=== PATIENT | male | born 1960 | race Two or more races ===

== ENCOUNTER 2022-06-05 08:00 | Outpatient (RCR) | payer MEDICARE, MEDICAID, SELFPAY ==
--- NOTE | ~2022-06-05 | XR_ITS ---
EXAMINATION: XR FOOT, LEFT CLINICAL INFORMATION: Nonhealing wound left foot COMPARISON: None TECHNIQUE: AP, lateral, and oblique views of the left foot. FINDINGS: The bones are osteopenic. No fracture or dislocation is seen. There is question of erosive change of the medial distal tuft of the great toe. Joint spaces are normal. There may be soft tissue swelling over the heel. There is a small plantar calcaneal spur. There is soft tissue arterial calcification. XR/XR foot LT min 3V IMPRESSION: Question of erosive change of the distal tuft of the great toe. Clinically correlate for osteomyelitis. Soft tissue swelling over the heel.
== END 2022-12-15 13:55 | disposition home or self-care (01) ==
LOC: HO.WCC 08:00
PROVIDERS: PCP Family Medicine; Visit Provider Physician Assistant
DX: E11.621 Type 2 diabetes mellitus with foot ulcer (principal); L97.422 Non-pressure chronic ulcer of left heel and midfoot with fat layer exposed; L97.412 Non-pressure chronic ulcer of right heel and midfoot with fat layer exposed; E11.51 Type 2 diabetes mellitus with diabetic peripheral angiopathy without gangrene; L84 Corns and callosities; I10 Essential (primary) hypertension; F17.210 Nicotine dependence, cigarettes, uncomplicated
CPT/HCPCS: 11042; 11043; 73630; 97597; 99212; 99213

== ENCOUNTER 2022-08-12 08:52 | Outpatient (REF) | payer MEDICARE, MEDICAID, SELFPAY ==
--- NOTE | ~2022-08-12 | US_ITS ---
EXAMINATION: ANKLE-BRACHIAL INDICES SINGLE LEVEL PULSE VOLUME RECORDING ARTERIAL DUPLEX LEFT LEG CLINICAL INFORMATION: Left foot ulcer COMPARISON: None TECHNIQUE: Ankle-brachial indices and PVR at the ankle were obtained bilaterally. Duplex Doppler of the left lower extremity arterial system was performed. FINDINGS: RIGHT: Ankle-brachial index: 0.64 PVR: Abnormal LEFT: Ankle-brachial index: 0.88 PVR: Abnormal Common femoral: PSV 206 cm/s. Triphasic waveform. Deep femoral: PSV 229 cm/s. Triphasic waveform. Proximal superficial femoral: PSV 190 cm/s. Triphasic waveform. Mid superficial femoral: PSV 132 cm/s. Triphasic waveform. Distal superficial femoral: PSV 136 cm/s. Triphasic waveform. Popliteal: PSV 370 cm/s. Monophasic waveform. Posterior tibial: PSV 36 cm/s. Monophasic waveform. Peroneal: PSV 59 cm/s. Monophasic waveform. US/US arterial duplex LE LT IMPRESSION: Right lower extremity: Moderate peripheral arterial disease by CAS and PVR. Left lower extremity: Mild peripheral arterial disease by CAS and PVR. The Doppler shows significant popliteal disease.
--- NOTE | ~2022-08-12 | US_ITS ---
EXAMINATION: ANKLE-BRACHIAL INDICES SINGLE LEVEL PULSE VOLUME RECORDING ARTERIAL DUPLEX LEFT LEG CLINICAL INFORMATION: Left foot ulcer COMPARISON: None TECHNIQUE: Ankle-brachial indices and PVR at the ankle were obtained bilaterally. Duplex Doppler of the left lower extremity arterial system was performed. FINDINGS: RIGHT: Ankle-brachial index: 0.64 PVR: Abnormal LEFT: Ankle-brachial index: 0.88 PVR: Abnormal Common femoral: PSV 206 cm/s. Triphasic waveform. Deep femoral: PSV 229 cm/s. Triphasic waveform. Proximal superficial femoral: PSV 190 cm/s. Triphasic waveform. Mid superficial femoral: PSV 132 cm/s. Triphasic waveform. Distal superficial femoral: PSV 136 cm/s. Triphasic waveform. Popliteal: PSV 370 cm/s. Monophasic waveform. Posterior tibial: PSV 36 cm/s. Monophasic waveform. Peroneal: PSV 59 cm/s. Monophasic waveform. US/US CAS complete IMPRESSION: Right lower extremity: Moderate peripheral arterial disease by CAS and PVR. Left lower extremity: Mild peripheral arterial disease by CAS and PVR. The Doppler shows significant popliteal disease.
== END 2022-08-12 08:53 | disposition home or self-care (01) ==
LOC: HO.US 08:52
PROVIDERS: Visit Provider Physician Assistant
DX: I73.9 Peripheral vascular disease, unspecified (principal); L97.529 Non-pressure chronic ulcer of other part of left foot with unspecified severity; E11.621 Type 2 diabetes mellitus with foot ulcer
CPT/HCPCS: 93923; 93926

== ENCOUNTER → 2022-09-17 10:13 | Outpatient (BNVA) | payer MEDICARE, MEDICAID, SELFPAY | PROVIDERS: PCP Family Medicine; Visit Provider Surgery Vascular Surgery | DX: I73.9 Peripheral vascular disease, unspecified (principal) | CPT/HCPCS: 99202 ==

== ENCOUNTER 2022-09-21 05:40 | Day surgery (SDC) | payer MEDICARE, MEDICAID, SELFPAY ==
[2022-09-21] VITALS (7 sets, daily range): BP systolic 130–181; BP diastolic 50–85; PULSE 78–84; RESP 11–14; TEMP 36.9; O2SAT 92–98; BMI 27.6
[2022-09-21 06:24] LABS: Glucose, Whole Blood 213 mg/dL (60-115)
[2022-09-21 06:38] LABS: MANUAL DIFF FLAG NO
[2022-09-21 06:40] LABS: Basophils Absolute Auto 0.2 X10*3/uL (0.0-0.2); Eosinophils Absolute Auto 0.3 X10*3/uL (0.0-0.4); Eosinophils Percent Auto 1.7 % (0-4); Hemoglobin 13.1 g/dl (14.0-18.0); Imm Gran Abs Auto 0.05 X10*3/uL (0.00-0.03); Imm Gran Pct Auto 0.3 % (0.0-0.4); Lymphocytes Absolute Auto 3.1 X10*3/uL (1.2-4.9); Lymphocytes Percent Auto 19.7 % (20-40); Mean Corpuscular HGB Conc 31.2 g/dl (31.0-36.0); Mean Corpuscular Hemoglobin 26.5 pg (27.0-33.0); Mean Platelet Volume 9.7 fL (9.4-12.4); Monocytes Percent Auto 6.6 % (2-11); Neutrophils Absolute Auto 10.9 x10*3/uL (2.0-8.3); Neutrophils Percent Auto 70.7 % (45-73); Platelet Count 338 X10*3/uL (160-400); Red Blood Count 4.94 X10*6/uL (4.60-5.80); Red Cell Distribution Width 15.6 % (11.0-16.0); White Blood Count 15.5 X10*3/uL (4.8-10.8)
[2022-09-21 06:53] LABS: Blood Urea Nitrogen 13 mg/dL (9-16); Estimated Glomerular Filt Rate > 60
[2022-09-21] MEDS: 0.9 % Sodium Chloride 1,000 ML 100 ML IVCONT (07:09)
--- NOTE | 2022-09-21 09:51 | W.PM.OPN ---
Operative Note Operative Note Date of Service: 09/21/22 Narrative: Angiogram report from [facility] Preoperative diagnosis: Atherosclerosis of left lower extremity with nonhealing ulcer Postoperative diagnosis: Same Procedure: 1. Ultrasound-guided right common femoral access 2. Aortogram with left lower extremity runoff 3. Angioplasty of left anterior tibial artery Surgeon:Kuldeep Anders M.D., FACS, RPVI Salvage Supervisor:None Anesthesia: Local with moderate conscious sedation. Total intraservice moderate sedation time was 62 minutes. I monitored the patient's level of consciousness and physiologic status continuously throughout the procedure. Specimens:none Drains:none Estimated blood loss: Less than 10 ml Implant: [employer] chocolate balloon 3 x 40 Indications: Pleasant 61-year-old gentleman with a prior history of nonhealing bilateral lower extremity ulcers presents for endovascular intervention. Consent was obtained with the patient and healthcare proxy both present during signing of the consent. The patient has signed the informed consent after reviewing risks, complications, benefits, and alternatives previously discussed with the patient. The patient was given the opportunity to ask any additional questions or voice any concerns. All questions were answered to the patient's satisfaction. Procedure in detail: Patient was brought to the angiography suite prior to which a time-out was called for patient identification and site verification. Bilateral groins were prepped and draped in the standard surgical fashion. Under ultrasound guidance right common femoral was punctured with micro puncture needle and wire. Subsequently a precision 4 Polish sheath was then placed. Bentson wire was advanced to the level of the aorta. 4 Polish Flush catheter was brought up and parked at the level of the renal arteries. Aortogram was then undertaken. Catheter was brought down to the level of the iliac bifurcation. Iliacs were subsequently imaged. Catheter was then brought in up and over to the left side SFA. Runoff study was then undertaken. We then recognized he had below-knee disease. We administered 5000 units of systemic heparin. After 5 minutes of circulation time and up and over 6 Polish sheath was then placed. We advanced a 035 glidewire Advantage to the below-knee popliteal level. This was followed by a trail Blazer catheter. We did a below-knee runoff from the popliteal level to better elucidate the degree of stenosis and occlusions. Multiple orthogonal views were then undertaken. Once this was accomplished we then advanced an 014 wire. We tried to get through the TP trunk which was a total occlusion and was reconstituted by collaterals and where it is unable to do so. We then turned our attention to the anterior tibial. There was a stenotic lesion at the origin. This was then plasty to with a chocolate balloon 3 x 40. This was insufflated for a total of 2 minutes in duration. Completion angiogram demonstrated excellent result. Catheter wire sheath was then brought back to the ipsilateral side. StarClose closure device was then deployed. Interpretation of films: 1. Ultrasound demonstrates appropriate femoral puncture. Image of which was saved. 2. Aortogram demonstrates appropriate caliber aorta. Minimal disease. Appropriate take-off of the renals. 3. Iliac images demonstrate no significant disease, significant tortuosity 4. Left Leg Common femoral artery: No significant disease Profundus Femoris: No significant disease Superficial femoral artery: Very minimal disease at Jose's canal Popliteal artery (p1,p2,p3): No significant disease Anterior tibial artery: High-grade stenosis at the origin bend good flow all the way down to the foot Peroneal artery: Occludes proximally but then reconstitutes via collateral and does supply on down to the foot Posterior tibial artery: Occluded Dorsalis pedis/plantar arch: In complete Conclusion: 1. Successful plasty of left anterior tibial artery 2. Anticoagulation status: Will require 6 months of aspirin and Plavix This note is constructed using voice recognition software. While every effort has been made to ensure accuracy, bobbin cleaning machine operator errors may have been included. Thank you for allowing me to participate in the care of your patient. Yours sincerely, Kuldeep Anders MD, FACS, R.P.V.I.
[2022-09-21] MEDS: oxyCODONE HCl Immed Release 5 MG TABLET PO (10:01)
[2022-09-21] MEDS: Acetaminophen 325 MG TABLET 650 MG PO (10:01)
[2022-09-21] MEDS: Clopidogrel Bisulfate 300 MG TABLET PO (10:03)
[2022-09-21] MEDS: HYDROmorphone HCl 2 MG/ML VIAL IVPUSH (10:04)
== END 2022-09-21 11:35 | disposition home or self-care (01) ==
PROVIDERS: PCP Family Medicine; Visit Provider Surgery Vascular Surgery
DX: E11.51 Type 2 diabetes mellitus with diabetic peripheral angiopathy without gangrene (principal); L97.829 Non-pressure chronic ulcer of other part of left lower leg with unspecified severity; I70.248 Atherosclerosis of native arteries of left leg with ulceration of other part of lower leg; Z79.4 Long term (current) use of insulin; F17.210 Nicotine dependence, cigarettes, uncomplicated
CPT/HCPCS: 36415; 37228; 76937; 82565; 82947; 84520; 85025; 99152; 99153; C1725; C1760; C1769; C1887; J1170; J2250; J3010; Q9967

== ENCOUNTER → 2022-10-06 09:28 | Outpatient (BNVA) | payer MEDICARE, MEDICAID, SELFPAY | PROVIDERS: PCP Family Medicine; Visit Provider Surgery Vascular Surgery | DX: I73.9 Peripheral vascular disease, unspecified (principal) | CPT/HCPCS: 99212 ==

== ENCOUNTER → 2022-12-09 06:59 | Day surgery (SDC) | payer MEDICARE, MEDICAID, SELFPAY ==
[2022-12-08 15:31] VITALS: BMI 27.6
[2022-12-09 07:11] VITALS: BP 108/76; PULSE 103; RESP 18; TEMP 36.6; O2SAT 96
--- NOTE | 2022-12-09 07:17 | PC.NURSE ---
no meds taken today
[2022-12-09 07:18] LABS: MANUAL DIFF FLAG NO
[2022-12-09 07:19] LABS: Glucose, Whole Blood 166 mg/dL (60-115)
[2022-12-09 07:22] LABS: Basophils Absolute Auto 0.2 X10*3/uL (0.0-0.2); Basophils Percent Auto 0.9 % (0-2); Eosinophils Absolute Auto 0.3 X10*3/uL (0.0-0.4); Eosinophils Percent Auto 1.4 % (0-4); Hematocrit 43.1 % (42.0-52.0); Imm Gran Abs Auto 0.09 X10*3/uL (0.00-0.03); Imm Gran Pct Auto 0.5 % (0.0-0.4); Lymphocytes Absolute Auto 4.4 X10*3/uL (1.2-4.9); Lymphocytes Percent Auto 25.6 % (20-40); Mean Corpuscular HGB Conc 32.5 g/dl (31.0-36.0); Mean Corpuscular Volume 83.2 fL (80.0-98.0); Mean Platelet Volume 9.5 fL (9.4-12.4); Monocytes Absolute Auto 1.3 X10*3/uL (0.1-1.2); Monocytes Percent Auto 7.3 % (2-11); Neutrophils Absolute Auto 11.1 x10*3/uL (2.0-8.3); Neutrophils Percent Auto 64.3 % (45-73); Platelet Count 394 X10*3/uL (160-400); Red Blood Count 5.18 X10*6/uL (4.60-5.80); Red Cell Distribution Width 15.2 % (11.0-16.0); White Blood Count 17.3 X10*3/uL (4.8-10.8)
[2022-12-09 07:27] LABS: INTERNATIONAL NORM RATIO 0.9 (0.9-1.1); Prothrombin Time 10.8 SEC (10.0-13.1)
[2022-12-09 07:36] LABS: Anion Gap 17 (12-20); Carbon Dioxide 28 mmol/L (22-29); Chloride 101 mmol/L (96-108); Potassium 3.8 mmol/L (3.3-5.1); Sodium 142 mmol/L (135-145)
[2022-12-09 07:57] VITALS: BP 108/75; PULSE 106; RESP 18; TEMP 36.6; O2SAT 96
[2022-12-09] MEDS: 0.9 % Sodium Chloride 1,000 ML 100 ML IVCONT (07:59)
--- NOTE | 2022-12-09 08:13 | PC.NURSE ---
pt st doesnot want to wait pulling on iv sts having pain 7-06/24 tiger for pain med order pt refused to wait iv d/rui explained the risk and need for procedure. pt still refused dr power and amee rn aware
== END ==
PROVIDERS: PCP Family Medicine; Visit Provider Surgery Vascular Surgery
DX: I73.9 Peripheral vascular disease, unspecified (principal); Z53.20 Procedure and treatment not carried out because of patient's decision for unspecified reasons
CPT/HCPCS: 36415; 80051; 82947; 85025; 85610

== ENCOUNTER → 2023-01-06 07:08 | Day surgery (SDC) | payer MEDICARE, MEDICAID, SELFPAY ==
[2023-01-06 08:10] VITALS: BMI 25.9
[2023-01-06 08:32] LABS: MANUAL DIFF FLAG NO
[2023-01-06 08:33] LABS: Basophils Absolute Auto 0.1 X10*3/uL (0.0-0.2); Basophils Percent Auto 0.9 % (0-2); Eosinophils Absolute Auto 0.3 X10*3/uL (0.0-0.4); Eosinophils Percent Auto 2.3 % (0-4); Hematocrit 37.8 % (42.0-52.0); Hemoglobin 12.1 g/dl (14.0-18.0); Imm Gran Abs Auto 0.08 X10*3/uL (0.00-0.03); Imm Gran Pct Auto 0.7 % (0.0-0.4); Lymphocytes Absolute Auto 2.6 X10*3/uL (1.2-4.9); Mean Corpuscular Hemoglobin 27.1 pg (27.0-33.0); Mean Corpuscular Volume 84.8 fL (80.0-98.0); Mean Platelet Volume 9.5 fL (9.4-12.4); Monocytes Absolute Auto 0.9 X10*3/uL (0.1-1.2); Monocytes Percent Auto 7.9 % (2-11); Neutrophils Absolute Auto 7.9 x10*3/uL (2.0-8.3); Neutrophils Percent Auto 66.2 % (45-73); Platelet Count 297 X10*3/uL (160-400); Red Blood Count 4.46 X10*6/uL (4.60-5.80); Red Cell Distribution Width 15.3 % (11.0-16.0)
[2023-01-06 08:51] LABS: Anion Gap 12 (12-20); Blood Urea Nitrogen 11 mg/dL (9-16); Calcium 8.8 mg/dL (8.4-10.2); Carbon Dioxide 28 mmol/L (22-29); Chloride 105 mmol/L (96-108); Creatinine Clr Calc Pharmacy 119.3; Estimated Glomerular Filt Rate > 60; Glucose Random 144 mg/dL (60-115); Potassium 4.3 mmol/L (3.3-5.1); Sodium 141 mmol/L (135-145)
--- NOTE | 2023-01-06 10:19 | PM.EVENT ---
Event Note Date of Service: 01/06/23 Event Note: Second attempt for this patient for peripheral intervention. The patient demanded pain medications prior to consent. I had completed my previous procedure and as soon as I was available I went over to the patient's bedside. At that point he had already taken out his IVs and was upset and wanted to leave. This was the 2nd attempt to perform intervention on this patient. The 2nd attempt was per patient request and we had attempted to get this patient to a higher level of care that may be a better able to control his pain he was also offered the 1st slot of the day but refused due to ride issues. I did inform the patient that we would have him on the procedure table within the next 20 minutes and would be easily medicated and made comfortable but he declined. Will help coordinate transfer to higher level care as required. He will follow up with us on a p.r.n. basis. Time Spent With Patient Time: Total time managing care of this patient today ____ minutes.
[2023-01-06 10:21] LABS: Glucose, Whole Blood 140 mg/dL (60-115)
== END ==
PROVIDERS: PCP Family Medicine; Visit Provider Surgery Vascular Surgery
DX: I73.9 Peripheral vascular disease, unspecified (principal); Z53.29 Procedure and treatment not carried out because of patient's decision for other reasons
CPT/HCPCS: 36415; 80048; 82947; 85025

== ENCOUNTER 2023-03-24 05:57 | Outpatient (REF) | payer MEDICARE, MEDICAID, SELFPAY ==
[2023-03-24 06:00] LABS: MANUAL DIFF FLAG NO
[2023-03-24 06:14] LABS: Basophils Absolute Auto 0.1 X10*3/uL (0.0-0.2); Basophils Percent Auto 0.9 % (0-2); Eosinophils Absolute Auto 0.1 X10*3/uL (0.0-0.4); Eosinophils Percent Auto 0.6 % (0-4); Hematocrit 27.3 % (42.0-52.0); Hemoglobin 8.6 g/dl (14.0-18.0); Imm Gran Abs Auto 0.06 X10*3/uL (0.00-0.03); Imm Gran Pct Auto 0.5 % (0.0-0.4); Lymphocytes Absolute Auto 2.3 X10*3/uL (1.2-4.9); Lymphocytes Percent Auto 18.2 % (20-40); Mean Corpuscular HGB Conc 31.5 g/dl (31.0-36.0); Mean Corpuscular Hemoglobin 26.6 pg (27.0-33.0); Mean Corpuscular Volume 84.5 fL (80.0-98.0); Monocytes Absolute Auto 0.9 X10*3/uL (0.1-1.2); Monocytes Percent Auto 6.8 % (2-11); Neutrophils Absolute Auto 9.2 x10*3/uL (2.0-8.3); Platelet Count 628 X10*3/uL (160-400); Red Blood Count 3.23 X10*6/uL (4.60-5.80); Red Cell Distribution Width 16.1 % (11.0-16.0); White Blood Count 12.6 X10*3/uL (4.8-10.8)
[2023-03-24 06:30] LABS: Alanine Aminotransferase 19 U/L (0-40); Albumin Level 3.6 g/dL (3.5-5.0); Alkaline Phosphatase 91 U/L (39-117); Anion Gap 12 (12-20); Aspartate Amino Transferase 18 U/L (5-37); Bilirubin Total 0.4 mg/dL (0.0-1.0); Blood Urea Nitrogen 23 mg/dL (9-16); Calcium 9.4 mg/dL (8.4-10.2); Carbon Dioxide 28 mmol/L (22-29); Chloride 107 mmol/L (96-108); Estimated Glomerular Filt Rate > 60; Glucose Random 134 mg/dL (60-115); Potassium 4.7 mmol/L (3.3-5.1); Sodium 142 mmol/L (135-145); Total Protein 6.6 g/dL (6.5-8.0)
== END 2023-03-24 05:58 | disposition home or self-care (01) ==
LOC: HO.MMNH1L 05:57
PROVIDERS: Visit Provider Family Medicine
DX: E11.9 Type 2 diabetes mellitus without complications (principal); I10 Essential (primary) hypertension
CPT/HCPCS: 36415; 80053; 85025

== ENCOUNTER 2023-03-28 20:45 | Outpatient (REF) | payer MEDICARE, MEDICAID, SELFPAY | END 2023-03-28 20:46 | disposition home or self-care (01) | LOC: HO.MMNH1L 20:45 | PROVIDERS: Visit Provider Family Medicine | DX: Z13.89 Encounter for screening for other disorder (principal) | CPT/HCPCS: 87086 ==

== ENCOUNTER 2023-03-29 06:24 | Outpatient (REF) | payer MEDICARE, MEDICAID, SELFPAY ==
[2023-03-29 06:10] LABS: MANUAL DIFF FLAG NO
[2023-03-29 06:21] LABS: Basophils Absolute Auto 0.1 X10*3/uL (0.0-0.2); Basophils Percent Auto 0.6 % (0-2); Eosinophils Absolute Auto 0.2 X10*3/uL (0.0-0.4); Eosinophils Percent Auto 0.9 % (0-4); Hematocrit 25.9 % (42.0-52.0); Hemoglobin 8.3 g/dl (14.0-18.0); Imm Gran Abs Auto 0.08 X10*3/uL (0.00-0.03); Imm Gran Pct Auto 0.5 % (0.0-0.4); Lymphocytes Absolute Auto 1.8 X10*3/uL (1.2-4.9); Lymphocytes Percent Auto 10.1 % (20-40); Mean Corpuscular Volume 84.4 fL (80.0-98.0); Mean Platelet Volume 9.6 fL (9.4-12.4); Monocytes Absolute Auto 0.9 X10*3/uL (0.1-1.2); Neutrophils Absolute Auto 14.4 x10*3/uL (2.0-8.3); Neutrophils Percent Auto 82.9 % (45-73); Platelet Count 465 X10*3/uL (160-400); Red Blood Count 3.07 X10*6/uL (4.60-5.80); Red Cell Distribution Width 16.5 % (11.0-16.0); White Blood Count 17.4 X10*3/uL (4.8-10.8)
[2023-03-29 06:58] LABS: Anion Gap 15 (12-20); Blood Urea Nitrogen 48 mg/dL (9-16); Calcium 8.8 mg/dL (8.4-10.2); Carbon Dioxide 22 mmol/L (22-29); Chloride 104 mmol/L (96-108); Estimated Glomerular Filt Rate > 60; Glucose Random 97 mg/dL (60-115); Potassium 4.2 mmol/L (3.3-5.1); Sodium 137 mmol/L (135-145)
[2023-03-30 07:57] LABS: Appearance Urine Cloudy; Color Urine Dark Yellow; Glucose Urine UA Negative (Negative); Leukocyte Esterase Urine Small (1+) (Negative); Nitrite Urine Negative (Negative); UMIC TRIGGER UACC YES; Urine Blood Large (3+) (Negative); Urine Ketones Trace mg/dL (Negative); Urine Protein 30 (1+) mg/dL (Neg-Trace)
[2023-03-30 08:13] LABS: Bacteria Urine None Seen (None Seen); UACC Culture Trigger YES
== END 2023-03-29 06:25 | disposition home or self-care (01) ==
LOC: HO.MMNH1L 06:24
PROVIDERS: Visit Provider Family Medicine
DX: S06.2X9D Diffuse traumatic brain injury with loss of consciousness of unspecified duration, subsequent encounter (principal); N40.0 Benign prostatic hyperplasia without lower urinary tract symptoms; E11.9 Type 2 diabetes mellitus without complications; I10 Essential (primary) hypertension; X58.XXXD Exposure to other specified factors, subsequent encounter
CPT/HCPCS: 36415; 80048; 81001; 85025; 87086

== ENCOUNTER 2023-03-30 05:49 | Outpatient (REF) | payer SELFPAY ==
[2023-03-30 05:53] LABS: MANUAL DIFF FLAG NO
[2023-03-30 06:32] LABS: Basophils Absolute Auto 0.1 X10*3/uL (0.0-0.2); Basophils Percent Auto 0.7 % (0-2); Eosinophils Absolute Auto 0.1 X10*3/uL (0.0-0.4); Eosinophils Percent Auto 0.6 % (0-4); Hematocrit 26.6 % (42.0-52.0); Hemoglobin 8.4 g/dl (14.0-18.0); Imm Gran Abs Auto 0.05 X10*3/uL (0.00-0.03); Imm Gran Pct Auto 0.4 % (0.0-0.4); Lymphocytes Absolute Auto 1.8 X10*3/uL (1.2-4.9); Lymphocytes Percent Auto 15.2 % (20-40); Mean Corpuscular HGB Conc 31.6 g/dl (31.0-36.0); Mean Corpuscular Hemoglobin 26.7 pg (27.0-33.0); Mean Corpuscular Volume 84.4 fL (80.0-98.0); Mean Platelet Volume 9.7 fL (9.4-12.4); Monocytes Absolute Auto 0.5 X10*3/uL (0.1-1.2); Monocytes Percent Auto 4.5 % (2-11); Neutrophils Absolute Auto 9.3 x10*3/uL (2.0-8.3); Neutrophils Percent Auto 78.6 % (45-73); Platelet Count 460 X10*3/uL (160-400); Red Blood Count 3.15 X10*6/uL (4.60-5.80); Red Cell Distribution Width 16.5 % (11.0-16.0); White Blood Count 11.9 X10*3/uL (4.8-10.8)
[2023-03-30 06:57] LABS: Alanine Aminotransferase 18 U/L (0-40); Albumin Level 3.7 g/dL (3.5-5.0); Alkaline Phosphatase 101 U/L (39-117); Anion Gap 14 (12-20); Aspartate Amino Transferase 22 U/L (5-37); Bilirubin Total 0.3 mg/dL (0.0-1.0); Blood Urea Nitrogen 44 mg/dL (9-16); Calcium 9.1 mg/dL (8.4-10.2); Carbon Dioxide 23 mmol/L (22-29); Chloride 106 mmol/L (96-108); Estimated Glomerular Filt Rate > 60; Glucose Random 97 mg/dL (60-115); Potassium 4.4 mmol/L (3.3-5.1); Sodium 139 mmol/L (135-145); Total Protein 6.6 g/dL (6.5-8.0)
== END 2023-03-30 05:50 | disposition home or self-care (01) ==
LOC: HO.MMNH1L 05:49
PROVIDERS: Visit Provider Family Medicine
DX: E11.9 Type 2 diabetes mellitus without complications (principal); I10 Essential (primary) hypertension
CPT/HCPCS: 36415; 80053; 85025; 87040